=== PATIENT | male | born 2005 | race Caucasian/White ===

== ENCOUNTER 2023-06-26 08:50 | Observation (INO) | payer OTHER ==
[~2023-06-26] VITALS: Ht 177.8 cm; Wt 89.2 kg
[2023-06-26 10:08] LABS: BASO # 0.1 10^3/uL (0.0-0.2); BASO % 0.6 % (0.0-1.0); EOS # 0.1 10^3/uL (0.0-0.5); EOS % 1.2 % (0.0-3.0); HEMOGLOBIN 16.1 g/dl (13.5-17.5); LYMPH # 2.6 10^3/uL (1.5-5.0); LYMPH % 24.9 % (24.0-44.0); MEAN CORPUSCULAR HEMOGLOBIN 31.3 pg (27.0-33.0); MEAN CORPUSCULAR HGB CONC 34.3 g/dl (32.0-36.5); MEAN CORPUSCULAR VOLUME 91.3 fl (80.0-96.0); MONO # 0.7 10^3/uL (0.0-0.8); MONO % 6.6 % (2.0-8.0); NEUTROPHILS % 66.5 % (36.0-66.0); PLATELET COUNT, AUTOMATED 293 10^3/uL (150-450); RED BLOOD COUNT 5.15 10^6/uL (4.30-6.10); WHITE BLOOD COUNT 10.5 10^3/uL (4.0-10.0)
[2023-06-26 10:26] LABS: LIPASE 23 U/L (12-53)
[2023-06-26 10:28] LABS: ALBUMIN 4.1 G/DL (3.2-5.2); ALKALINE PHOSPHATASE 133 U/L (46-116); ALT/SGPT 18 U/L (7.0-40); AST/SGOT 13 U/L (<34); BILIRUBIN,DIRECT 0.2 MG/DL (<0.4); BILIRUBIN,TOTAL 0.6 MG/DL (0.3-1.2); BLOOD UREA NITROGEN 13 MG/DL (9-23); CALCIUM LEVEL 9.4 MG/DL (8.5-10.1); CARBON DIOXIDE LEVEL 27 MMOL/L (20-31); CHLORIDE LEVEL 106 MMOL/L (98-107); CREATININE FOR GFR 1.02 MG/DL (0.70-1.30); GLUCOSE, FASTING 96 MG/DL (60-100); POTASSIUM SERUM 4.3 MMOL/L (3.5-5.1); SODIUM LEVEL 139 MMOL/L (136-145); TOTAL PROTEIN 7.5 G/DL (5.7-8.2)
[2023-06-26] MEDS ORDERED: ISOVUE-370 76% 100ML VIAL As Ordered ONE (12:47)
[2023-06-26] MEDS ORDERED: PIPERACILLIN/TAZOBACTAM SOD 3.375 GM in D5W MINI-BAG PLUS 50 ML IV ONE (14:00)
[2023-06-26] MEDS ORDERED: MED REC IN PROGRESS XX SCH (14:05)
[2023-06-26] MEDS ORDERED: ACETAMINOPHEN TAB 650MG DOSE (2X325MG) PO PRN (15:00)
[2023-06-26] MEDS ORDERED: ONDANSETRON 4MG ORAL DISINTEGRATING TAB PO PRN (15:00)
[2023-06-26] MEDS ORDERED: HEPARIN SOD (PORCINE) 5000UNITS/ML 1ML VIAL/SYRINGE SC ONE (15:00)
[2023-06-26] MEDS ORDERED: MORPHINE 2 MG/ML 1ML VIAL IV PRN (15:00)
[2023-06-26] MEDS ORDERED: LR 1,000 ML IV SCH ×2 (15:00→18:15)
[2023-06-26] MEDS ORDERED: PERCOCET 5MG/325MG TAB PO PRN (15:00)
[2023-06-26] MEDS ORDERED: ONDA4TAB6 PO (15:19)
[2023-06-26] MEDS ORDERED: PERCOCET PO (15:19)
[2023-06-26] MEDS ORDERED: ROCURONIUM BROMIDE 50MG/5ML VIAL As Ordered ONE ×2 (15:20→17:27)
[2023-06-26] MEDS ORDERED: propofoL 200 MG/20 ML VIAL As Ordered ONE (15:20)
[2023-06-26] MEDS ORDERED: MIDAZOLAM INJ 2MG/2ML VIAL As Ordered ONE (15:20)
[2023-06-26] MEDS ORDERED: LIDOCAINE 2% 100MG/5ML SDV (FOR ANES.) As Ordered ONE (15:20)
[2023-06-26] MEDS ORDERED: fentaNYL 100 MCG/2 ML INJECTION As Ordered ONE ×2 (15:20→17:29)
[2023-06-26] MEDS ORDERED: ONDANSETRON 4MG 2ML VIAL As Ordered ONE (15:21)
[2023-06-26] MEDS ORDERED: KETOROLAC 60MG 2ML VIAL As Ordered ONE (15:21)
[2023-06-26] MEDS ORDERED: ACETAMINOPHEN 1000MG 100ML IV BAG As Ordered ONE (16:48)
[2023-06-26] MEDS ORDERED: ESMOLOL INJ 100MG/10ML VIAL As Ordered ONE (17:30)
[2023-06-26] MEDS ORDERED: SUGAMMADEX SODIUM 500 MG/5 ML VIAL (BRIDION) As Ordered ONE (17:40)
[2023-06-26] MEDS ORDERED: ONDANSETRON 4MG 2ML VIAL IV PRN (18:15)
[2023-06-26] MEDS ORDERED: fentaNYL 100 MCG/2 ML INJECTION IV PRN (18:15)
[2023-06-26] MEDS ORDERED: HYDROMORPHONE HCL 0.5 MG/ 0.5 ML SYRINGE IV PRN (18:15)
[2023-06-26] MEDS ORDERED: oxyCODONE 5MG TAB PO PRN (18:15)
[2023-06-26] MEDS ORDERED: METOCLOPRAMIDE INJ 10MG/2ML VIAL IV PRN (18:15)
[2023-06-26] MEDS ORDERED: OXYC1TAB23 PO (18:36)
[2023-06-26] MEDS: MEPERIDINE 25 MG/ML 1ML VIAL IV PRN ×2 (18:41→18:46)
[2023-06-26 19:46] VITALS: BP 146/86; TEMP 97.9; O2SAT 100
[2023-06-26] MEDS ORDERED: MED REC CURRENTLY UNOBTAINABLE XX SCH (20:55)
== END 2023-06-26 19:58 | disposition home or self-care (01) ==
LOC: M ED 08:50 → M SDC 14:54 → M ED INP 14:55
PROVIDERS: ADMIT Surgery; ATTEND Surgery
DX: K35.890 Other acute appendicitis without perforation or gangrene (principal); F17.218 Nicotine dependence, cigarettes, with other nicotine-induced disorders; F90.9 Attention-deficit hyperactivity disorder, unspecified type
CPT/HCPCS: 44970; 74177; 80048; 80076; 83690; 85025; 87635; 88304; 96365; 99284; J0131; J0665; J1100; J1805; J1885; J2175; J2250; J2405; J2543; J3010; Q9967